=== PATIENT | female | born 1985 | race Caucasian/White ===

== ENCOUNTER → 2019-06-24 | Outpatient (CLI) | payer OTHER ==
--- NOTE | 2019-06-24 15:32 | CONS ---
CONSULTATION DATE OF SERVICE: 06/24/2019 A 33-year-old lady who [facility] problem which included difficulties to initiate sleep and multiple awakenings from sleep and feeling tiredness and sleepiness during the day. HISTORY OF PRESENT ILLNESS/SLEEP-WAKE EVALUATION: Patient usual sleep schedule from 11 p.m. to 9:30 - 10:00 am. She does have problem with falling asleep, has TV set in bedroom, usually sleeps on the side position with snoring at time and she has some allergies. She prefers to sleep on the side, wakes up from sleep up to 5 times with up to 3 episodes of nocturia. She grinds her teeth, may feel dryness in her mouth when wakes up, possibly sleep with open mouth and has symptoms of restless legs. No history of hypnagogic hallucinations, sleep paralysis or cataplexy. During the day, feels sleepy, wakes up tired, has difficulties to pay attention and has problems with memory, concentration, depression, anxiety, claustrophobia, the [place] Sleepiness Scale increased to 11, but usually she can not take naps. Does not fall asleep during the naps. PAST MEDICAL HISTORY: Positive for episodes of anorexia, depression, allergic rhinitis, hypothyroidism, acid reflux, pain in the body under evaluation for possible fibromyalgia. PAST SURGICAL HISTORY: Cholecystectomy, tonsillectomy. MEDICATIONS: Levothyroxine, gabapentin, Fioricet, omeprazole, naproxen, Singulair, Zyrtec, melatonin. SOCIAL HISTORY: Negative for smoking, alcohol consumption occasional. FAMILY HISTORY: Hypertension, hyperlipidemia, fibromyalgia, arthritis, asthma, sinus problems, cancer, snoring, thyroid problems, acid reflux, mental illness, restless legs. REVIEW OF SYSTEMS: Difficulties to initiate sleep, multiple awakenings from sleep, feeling tiredness and sleepiness during the day. PHYSICAL EXAM: lady without distress, BP 145/86, HR 60, RR 16, height 5, 4, weight 266, body mass index 45.6, temperature 97.6, oxygen saturation at room air 97%. OROPHARYNX: Low position of soft palate, sign of thrush in the mouth. Restriction of nasal breathing. Moderately low position of soft palate, Mallampati 3. Neck 14-1/4 inch in circumference. ABDOMEN: Obese. Neck Supple, no JVD. Thyroid is not palpable. LUNGS Clear to percussion and to auscultation. Good air exchange. No wheezing or rhonchi. HEART S1, S2 regular. No murmurs, gallops, or rubs. EXTREMITIES No clubbing or cyanosis. MARKETING REPORTING ANALYST Awake, alert, and oriented X3. Cranial nerves 2 to 7 intact. There is no fasciculation or atrophy. noted. No focal deficits observed. IMPRESSION: 1. Episodes of snoring, multiple awakenings from sleep up to 5 times with 3 episodes of nocturia, small oropharyngeal air space restriction of nasal breathing, sleepiness. [place] Sleepiness Scale increased to 11, obstructive sleep apnea- hypopnea syndrome. 2. Difficulties to initiate sleep, insomnia. 3. History of anorexia. 4. Depression. 5. Hypothyroidism. 6. Allergic rhinitis. 7. Acid reflux. 8. History of multiple pain, under evaluation for possible fibromyalgia. 9. Status post tonsillectomy. 10.Status post cholecystectomy. PLAN: 1. Polysomnography for evaluation of patient's breathing during sleep. 2. CPAP/BiPAP titration if sleep study confirms obstructive sleep apnea-hypopnea syndrome. 3. Preferable position during sleep on the side. 4. No driving if patient feels any sleepiness. 5. I will see patient for follow up visit to explain results of testing and following plan. Thank you very much for allowing me to participate in the management of your patient. Sincerely, Hua Pitts MD, PhD, FAASM Diplomat of [employer] [employer] [employer] [facility] [place] MMODL / IJN: [id number] /
== END ==
LOC: SLEEP 10:05
PROVIDERS: ATTEND Internal Medicine
DX: G47.33 Obstructive sleep apnea (adult) (pediatric) (principal); F32.9 Major depressive disorder, single episode, unspecified; E03.9 Hypothyroidism, unspecified; J30.9 Allergic rhinitis, unspecified; K21.9 Gastro-esophageal reflux disease without esophagitis; I10 Essential (primary) hypertension; E78.5 Hyperlipidemia, unspecified; J45.909 Unspecified asthma, uncomplicated; M79.7 Fibromyalgia; M19.90 Unspecified osteoarthritis, unspecified site; R29.898 Other symptoms and signs involving the musculoskeletal system; R63.0 Anorexia; Z90.89 Acquired absence of other organs; Z90.49 Acquired absence of other specified parts of digestive tract; Z79.899 Other long term (current) drug therapy
CPT/HCPCS: 99211